=== PATIENT | female | born 1980 | race Caucasian/White ===

== ENCOUNTER → 2018-04-29 | Outpatient (REF) ==
[~2018-04-29] MED LIST: BYSTOLIC5 MG PO; MOTRIN 600600 MG/TAB PO; PERCOCET 325 MG1 TA2 PO; PRENATAL VITAMI1 TA5 PO; SENOKOT S 50 MG1 TAB PO
[2018-04-29 18:59] LABS: THYROID STIMULATING HORMONE 1.37 uIU/mL (0.465-4.680)
== END ==
LOC: ZLAB.WCH 18:16
PROVIDERS: Physician Assistant
DX: Z01.89 Encounter for other specified special examinations (principal)

== ENCOUNTER → 2019-05-15 | Outpatient (CLI) | payer OTHER | LOC: ZCOL.LAB 10:12 | DX: Z01.812 Encounter for preprocedural laboratory examination (principal); Z86.14 Personal history of Methicillin resistant Staphylococcus aureus infection ==

== ENCOUNTER → 2019-07-06 | Outpatient (CLI) | payer OTHER | LOC: COL.VAS 10:10 | DX: M79.89 Other specified soft tissue disorders (principal); Z98.890 Other specified postprocedural states ==